=== PATIENT | female | born 1980 | race African-American/Black ===

== ENCOUNTER 2016-12-15 23:03 | Emergency (ER) | payer SELFPAY | END 2016-12-16 00:26 | disposition home or self-care (01) | LOC: ER 23:03 | PROC: 2W3KX1Z Immobilization of Left Finger using Splint (ICD-10-PCS; principal; 2016-12-15) | DX: S62.637A Displaced fracture of distal phalanx of left little finger, initial encounter for closed fracture (principal); Z90.710 Acquired absence of both cervix and uterus; Z85.43 Personal history of malignant neoplasm of ovary; W22.8XXA Striking against or struck by other objects, initial encounter | CPT/HCPCS: 73140-LT; 99283; A9270-GY ==